=== PATIENT | female | born 1970 | race Caucasian/White ===

== ENCOUNTER 2023-04-20 12:10 | Inpatient (IN) ==
[2023-04-20] MEDS ORDERED: IOPAMIDOL 100 ML BOTTLE IV ONE (12:11)
[2023-04-20] MEDS: LACTATED RINGERS 1,000 ML IV ONE ×2 (13:01→14:10)
[2023-04-20] MEDS: CEFEPIME 2 GM VIAL IV ONE (13:01)
[2023-04-20] MEDS: LORazepam 2 MG/ML VIAL IV ONE ×2 (13:01→14:10)
[2023-04-20] MEDS: 0.9 % SODIUM CHLORIDE 250 ML ONE (13:03)
[2023-04-20 13:17] LABS: Basophils # (Auto) 0.02 K/mcL (0.00-0.30); Basophils % (Auto) 0.1 % (0.0-2.0); Eosinophils # (Auto) 0.01 K/mcL (0.00-0.70); Eosinophils % (Auto) 0 % (0.0-7.0); Hematocrit 44.9 % (34.1-44.9); Hemoglobin 15.2 g/dL (11.2-15.7); Lymphocytes # (Auto) 0.23 K/mcL (1.50-4.80); Mean Cell Volume 101.1 fL (80.0-100.0); Mean Corpuscular HGB Conc 33.9 g/dL (31.0-36.0); Mean Platelet Volume 9.3 fL (8.8-12.5); Monocytes # (Auto) 0.93 K/mcL (0.10-0.90); Monocytes % (Auto) 4.1 % (1.0-12.0); Neutrophils % (Auto) 93.1 % (38.0-78.0); Platelet Count 301 K/mcL (140-440); RBC 4.44 M/mcL (3.59-5.38); Red Cell Distribution Width 11.7 % (11.5-14.5)
[2023-04-20 13:35] LABS: Alcohol, Blood < 10.1 mg/dL; Alcohol,Blood < 0.010 gm/dL (<0.010)
[2023-04-20 13:37] LABS: ALT/SGPT 14 U/L (<40); AST/SGOT 41 U/L (<32); Albumin 3.8 gm/dL (3.2-5.2); Albumin/Globulin Ratio 1.1 (1.0-2.3); Alkaline Phosphatase 147 U/L (39-117); Bilirubin,Total 0.6 mg/dL (0.1-1.0); Blood Urea Nitrogen 12 mg/dL (6-20); Calcium 9.4 mg/dL (8.6-10.4); Carbon Dioxide 20 mmol/L (22-30); Chloride 99 mmol/L (96-108); Globulin 3.6 gm/dL (2.2-3.7); Glomerular Filtration Rate 74; Glucose 156 mg/dL (70-105)
[2023-04-20 13:38] LABS: Creatine Kinase 37 U/L (24-170)
[2023-04-20] MEDS: VANCOMYCIN 1,000 MG in 0.9 % SODIUM CHLORIDE 250 ML IV ONE (13:40)
[2023-04-20] MEDS: metroNIDAZOLE 500 MG/100 ML BAG IV ONE (15:19)
[2023-04-20] MEDS ORDERED: morphine 4 MG/ML VIAL IV PRN (16:55)
[2023-04-20] MEDS ORDERED: VANCOMYCIN PER PHARMACY IV SCH (16:55)
[2023-04-20] MEDS ORDERED: POLYETHYLENE GLYCOL 3350 17 GM PACKET PO PRN (16:55)
[2023-04-20] MEDS ORDERED: chlordiazePOXIDE 25 MG CAPSULE PO PRN (16:55)
[2023-04-20] MEDS ORDERED: MAGNESIUM SULFATE 2 GM/50 ML BAG IV PRN (16:55)
[2023-04-20] MEDS ORDERED: POTASSIUM CHLORIDE 20 MEQ TABLET PO PRN (16:55)
[2023-04-20] MEDS ORDERED: IPRATROPIUM/ALBUTEROL 3 ML AMPUL.NEB NEB PRN (16:55)
[2023-04-20] MEDS ORDERED: SENNOSIDES 1 TABLET PO PRN (16:55)
[2023-04-20] MEDS ORDERED: POTASSIUM CHLORIDE 40 MEQ in DEXTROSE 5% IN WATER 500 ML IV PRN (16:55)
[2023-04-20] MEDS ORDERED: ONDANSETRON 4 MG/2 ML VIAL IV PRN (16:55)
[2023-04-20] MEDS: cefTRIAXone 1 GM VIAL IV SCH (18:08)
[2023-04-20] MEDS: HYDROcodone/APAP 5/325MG TABLET PO PRN (18:20)
[2023-04-20] MEDS: POTASSIUM CHLORIDE 20 MEQ TABLET PO PRN (18:21)
[2023-04-20] MEDS: BENZOCAINE/MENTHOL 1 LOZENGE PO PRN (18:21)
[2023-04-20] MEDS: cefTRIAXone 2 GM in DEXTROSE 5% IN WATER 50 ML IV ONE (18:48)
[2023-04-20] MEDS: cefTRIAXone 2 GM VIAL ONE (18:49)
[2023-04-20] MEDS: VANCOMYCIN 1,000 MG in 0.9 % SODIUM CHLORIDE 250 ML IV SCH (20:14)
[2023-04-20] MEDS: diphenhydrAMINE 25 MG CAPSULE PO PRN (20:15)
[2023-04-20] MEDS: 0.9 % SODIUM CHLORIDE 10 ML SYRINGE IV SCH ×2 (20:15→20:16)
[2023-04-20] MEDS: ACETAMINOPHEN 325 MG TABLET PO PRN (21:21)
[2023-04-20] MEDS ORDERED: metroNIDAZOLE 500 MG/100 ML BAG IV SCH (22:00)
[2023-04-20] MEDS: CLINDAMYCIN IN 0.9 % SOD CHLOR 600 MG/50 ML BAG IV SCH (23:21)
[2023-04-21 06:24] LABS: Basophils # (Auto) 0.01 K/mcL (0.00-0.30); Basophils % (Auto) 0.1 % (0.0-2.0); Eosinophils # (Auto) 0.08 K/mcL (0.00-0.70); Eosinophils % (Auto) 0.5 % (0.0-7.0); Hematocrit 39.3 % (34.1-44.9); Hemoglobin 12.8 g/dL (11.2-15.7); Lymphocytes % (Auto) 4.4 % (15.5-49.0); Mean Cell Volume 105.4 fL (80.0-100.0); Mean Corpuscular HGB Conc 32.6 g/dL (31.0-36.0); Mean Platelet Volume 9.1 fL (8.8-12.5); Monocytes # (Auto) 0.71 K/mcL (0.10-0.90); Monocytes % (Auto) 4.4 % (1.0-12.0); Neutrophils % (Auto) 89.8 % (38.0-78.0); Platelet Count 250 K/mcL (140-440); RBC 3.73 M/mcL (3.59-5.38); Red Cell Distribution Width 11.8 % (11.5-14.5); WBC 16.1 K/mcL (4.5-11.0)
[2023-04-21 06:42] LABS: ALT/SGPT 10 U/L (<40); AST/SGOT 30 U/L (<32); Albumin 3.2 gm/dL (3.2-5.2); Albumin/Globulin Ratio 1.1 (1.0-2.3); Alkaline Phosphatase 106 U/L (39-117); Bilirubin,Direct < 0.2 mg/dL (0-0.3); Bilirubin,Total 0.3 mg/dL (0.1-1.0); Blood Urea Nitrogen 8 mg/dL (6-20); Calcium 8.9 mg/dL (8.6-10.4); Carbon Dioxide 24 mmol/L (22-30); Chloride 101 mmol/L (96-108); Globulin 2.9 gm/dL (2.2-3.7); Glomerular Filtration Rate 100; Glucose 138 mg/dL (70-105); Lactate Dehydrogenase 128 U/L (135-225); Phosphorous 2.4 mg/dL (2.5-4.5); Triglycerides 64 mg/dL (<150); Uric Acid 2.6 mg/dL (2.5-8.0)
[2023-04-21] MEDS: ENOXAPARIN 40 MG/0.4 ML SYRINGE SQ SCH (08:35)
[2023-04-21] MEDS: MULTIVIT,THER IRON,CA,FA & MIN 1 TABLET PO SCH (08:36)
[2023-04-21] MEDS: THIAMINE 100 MG TABLET PO SCH (08:36)
[2023-04-21] MEDS: buPROPion 150 MG TAB.XL.24H PO SCH (08:36)
[2023-04-21] MEDS: FOLIC ACID 1 MG TABLET PO SCH (08:37)
[2023-04-21] MEDS: LORazepam 2 MG/ML VIAL IV ONE (09:55)
[2023-04-21] MEDS: SODIUM CHLORIDE NASAL 1 SPRAY BOTTLE NAS PRN (09:57)
[2023-04-21] MEDS: cefTRIAXone 2 GM in DEXTROSE 5% IN WATER 50 ML IV SCH (13:06)
[2023-04-21] MEDS: LORazepam 2 MG/ML VIAL IV PRN (21:02)
[2023-04-22 06:30] LABS: Basophils # (Auto) 0.01 K/mcL (0.00-0.30); Basophils % (Auto) 0.1 % (0.0-2.0); Eosinophils # (Auto) 0.21 K/mcL (0.00-0.70); Eosinophils % (Auto) 1.4 % (0.0-7.0); Hematocrit 40.3 % (34.1-44.9); Hemoglobin 13.4 g/dL (11.2-15.7); Lymphocytes % (Auto) 7.3 % (15.5-49.0); Mean Cell Volume 102.8 fL (80.0-100.0); Mean Corpuscular HGB Conc 33.3 g/dL (31.0-36.0); Mean Platelet Volume 9.6 fL (8.8-12.5); Monocytes # (Auto) 0.98 K/mcL (0.10-0.90); Monocytes % (Auto) 6.5 % (1.0-12.0); Neutrophils % (Auto) 84.3 % (38.0-78.0); Platelet Count 274 K/mcL (140-440); RBC 3.92 M/mcL (3.59-5.38); Red Cell Distribution Width 11.7 % (11.5-14.5)
[2023-04-22 06:37] LABS: ALT/SGPT 6 U/L (<40); AST/SGOT 24 U/L (<32); Albumin 3.2 gm/dL (3.2-5.2); Bilirubin,Direct < 0.2 mg/dL (0-0.3); Bilirubin,Total 0.3 mg/dL (0.1-1.0); Blood Urea Nitrogen 7 mg/dL (6-20); Calcium 8.7 mg/dL (8.6-10.4); Carbon Dioxide 23 mmol/L (22-30); Chloride 100 mmol/L (96-108); Glucose 96 mg/dL (70-105); Lactate Dehydrogenase 208 U/L (135-225); Uric Acid 2.9 mg/dL (2.5-8.0)
[2023-04-22 06:38] LABS: Alkaline Phosphatase 141 U/L (39-117); Globulin 3.3 gm/dL (2.2-3.7); Glomerular Filtration Rate 105; Triglycerides 88 mg/dL (<150)
[2023-04-23 06:28] LABS: Basophils # (Auto) 0.02 K/mcL (0.00-0.30); Basophils % (Auto) 0.2 % (0.0-2.0); Eosinophils # (Auto) 0.31 K/mcL (0.00-0.70); Eosinophils % (Auto) 3.4 % (0.0-7.0); Hematocrit 43.3 % (34.1-44.9); Hemoglobin 14.1 g/dL (11.2-15.7); Lymphocytes # (Auto) 1.12 K/mcL (1.50-4.80); Lymphocytes % (Auto) 12.2 % (15.5-49.0); Mean Cell Volume 104.6 fL (80.0-100.0); Mean Corpuscular HGB Conc 32.6 g/dL (31.0-36.0); Monocytes # (Auto) 0.81 K/mcL (0.10-0.90); Monocytes % (Auto) 8.8 % (1.0-12.0); Neutrophils % (Auto) 74.7 % (38.0-78.0); Platelet Count 313 K/mcL (140-440); RBC 4.14 M/mcL (3.59-5.38); Red Cell Distribution Width 11.8 % (11.5-14.5); WBC 9.2 K/mcL (4.5-11.0)
[2023-04-23] MEDS: cefTRIAXone 2 GM VIAL ONE (20:29)
[2023-04-23] MEDS: LORazepam 2 MG/ML VIAL IV PRN (20:32)
[2023-04-25] MEDS: valACYclovir 500 MG TABLET PO ONE (09:46)
[2023-04-25] MEDS: valACYclovir 500 MG TABLET PO SCH (09:48)
== END 2023-04-25 10:32 | disposition home or self-care (01) | DRG 602 ==
LOC: ED 12:10 → ICU 16:40 → MEDSUR 04-21 07:18
PROVIDERS: ADMIT Internal Medicine; ATTEND Internal Medicine